=== PATIENT | female | born 1980 | race Caucasian/White ===

== ENCOUNTER 2018-11-21 16:42 | Emergency (ER) | payer MEDICAID ==
--- NOTE | 2018-11-21 19:20 | EDPHY ---
H & P Stated Complaint: cough/runny nose (4 months ) Time Seen by Provider: 11/21/18 19:14 HPI/ROS: HPI: This is a 38-year-old female who presents with Chief Complaint: cough/runny nose (4 months ) Location: Nose Quality: Congestion, pressure Duration: 4-5 days Signs and Symptoms: no fever, no nausea, no vomiting, no diarrhea, no urinary symptoms, no chest pain, no shortness of breath, no wheezing, + nonproductive cough, no sore throat, no neck stiffness, no joint pain, no swollen glands, no ear pain, no rash Timing: Acute, daily Severity: Mild Context: , currently 4 months , presents with 4-5 day history of a clear runny nose, nasal congestion, no maxillary sinus pressure and within the last 24 hr dry nonproductive cough. Nonsmoker. Patient reports that she recently moved to the area and is 4 months . She already has an appointment with [facility] for care. She denies any abdominal pain, vaginal discharge, vaginal bleeding. She is taking a vitamin daily. Patient reports that she has been trying to find a job for the last week and has an interview tomorrow. She took Claritin [id number] the last few days without improvement in her symptoms so "she knows is not her allergies." Modifying Factors: Cleared Comment: ROS: A comprehensive 10 system review of systems is otherwise negative aside from elements mentioned in the history of present illness. MEDICAL/SURGICAL/SOCIAL HISTORY: Medical history: Generally healthy. Does not take any regular medications. Surgical history: Denies Social history: Never smoked. Homeless. Denies alcohol and drug use. Family history noncontributory. CONSTITUTIONAL: Well-developed, well-nourished, well-appearing, adult white female, awake and alert, no obvious distress HEENT: Atraumatic and normocephalic, PERRL, EOMI. Bilateral suborbital darkening. Nares patent; clear rhinorrhea; mild nasal mucosal edema; bilateral reproducible maxillary sinus tenderness. Tympanic membranes clear. Oropharynx clear, no exudate and moist pink mucosa. Airway patent. No lymphadenopathy. No meningismus. Cardiovascular: Normal S1/S2, regular rate, regular rhythm, without murmur rub or gallop. PULMONARY/CHEST: Symmetrical and nontender. Clear to auscultation bilaterally. Good air movement. No accessory muscle usage. ABDOMEN: Soft, gravid, nondistended, nontender, no rebound, no guarding, no peritoneal signs, no masses or organomegaly. No CVAT. EXTREMITIES: 2/2 pulses, strength 5/5, no deformities, no clubbing, no cyanosis or edema. NEUROLOGICAL: no focal neuro deficits. GCS 15. Speech clear. SKIN: Warm and dry, no erythema. no rash. Good capillary refill. Source: Patient Exam Limitations: No limitations - Personal History LMP (Females 10-55): Current Tetanus Diphtheria and Acellular Pertussis (TDAP): No - Medical/Surgical History Hx Asthma: No Hx Chronic Respiratory Disease: No Hx Diabetes: No Hx Cardiac Disease: No Hx Renal Disease: No Hx Cirrhosis: No Hx Alcoholism: No Hx HIV/AIDS: No Hx Splenectomy or Spleen Trauma: No Other PMH: denies - Social History Smoking Status: Never smoked Constitutional: Initial Vital Signs Temperature (C) 36.7 C 11/21/18 16:44 Heart Rate 77 11/21/18 16:44 Respiratory Rate 18 11/21/18 16:44 Blood Pressure 118/72 11/21/18 16:44 O2 Sat (%) 95 11/21/18 16:44 O2 Delivery Mode Room Air Allergies/Adverse Reactions: No Known Allergies Allergy (Unverified 11/21/18 16:44) Home Medications: Medication Instructions Recorded Amoxicillin Trihydrate [Amoxil] 500 mg PO TID 7 Days cap 11/21/18 Claritin 11/21/18 Fluticasone Nasal [Flonase Nasal 1 sprays NASAL DAILY #1 mdi 11/21/18 [place] (RX)] Medical Decision Making ED Course/Re-evaluation: Vital signs reviewed and stable upon arrival. Wells criteria is low for pulmonary embolism. Will treat aggressively with Amoxicillin and [id number] Flonase or Rhinocort. Patient reports that [facility] No indication for pelvic ultrasound as no vaginal bleeding, no abdominal pain. This patient was seen under the supervision of my secondary supervising physician. I evaluated care for this patient with attending. Discussed this patient with Dr. Hawk. Differential Diagnosis: Differential diagnosis includes but is not limited to bronchitis, pulmonary embolism, pneumonia, upper respiratory infection, viral syndrome, sinusitis. Departure - Departure Disposition: Home, Routine, Self-Care Clinical Impression: Sinus disease, Second trimester , Rhinosinusitis Condition: Good Instructions: (ED), Rhinosinusitis (ED) Additional Instructions: Take antibiotics as directed. Do not skip a dose. Use [id number] Flonase/Rhinocort daily for nasal congestion. Consume a minimum of 8-10 glasses of water or electrolyte fluid replacement drinks that include Gatorade, Powerade, Pedialyte. Keep follow-up appointment at the [facility] to establish care. Referrals: [facility],. [Clinic] - As per Instructions Prescriptions: Amoxicillin Trihydrate [Amoxil] 500 mg PO TID 7 Days cap Fluticasone Nasal [Flonase Nasal [place] (RX)] 1 sprays NASAL DAILY #1 mdi
[2018-11-21 19:35] VITALS: BP 123/76
== END 2018-11-21 19:37 | disposition home or self-care (01) ==
DX: J32.9 Chronic sinusitis, unspecified (principal); Z33.1 Pregnant state, incidental

== ENCOUNTER 2018-12-07 17:29 | Emergency (ER) | payer MEDICAID, OTHER ==
--- NOTE | 2018-12-07 18:10 | EDPHY ---
H & P Time Seen by Provider: 12/07/18 17:58 HPI/ROS: CHIEF COMPLAINT: "I am grinding my teeth and I lost my mouth guard" HISTORY OF PRESENT ILLNESS: 38-year-old female currently approximately 26 weeks , history of bruxism, states that she has lost her mouth guard and is grinding her teeth in his waking up with pain at her bilateral TMJ. She is not sure what she should do next. She has not been consuming of Tylenol. She does not have money for a new mouth guard. She denies: Visual disturbance , neck pain, syncope, near syncope, abdominal pain, vaginal bleeding or discharge, loss of movement, urinary abnormality, fever, chills, peripheral edema. PRIMARY CARE PROVIDER: [facility] REVIEW OF SYSTEMS: 10 systems reviewed and negative with the exception of the elements mentioned in the history of present illness PAST MEDICAL & SURGICAL HISTORY: currently 26 weeks SOCIAL HISTORY: Denies alcohol or drug use PHYSICAL EXAM (Prior to examination, patient consented to physical exam, hands were washed and my usual and customary physical exam procedures followed) 1) GENERAL: Well-developed, well-nourished, alert and oriented. Appears to be in no acute distress. Smiling. 2) HEAD: Normocephalic, atraumatic 3) HEENT: Pupils equal, round, reactive to light bilaterally. Sclera anicteric. Symmetrical facies. Oropharynx: Poor dentition. No focal areas of discomfort palpation. Floor of mouth soft no evidence of Ata's angina. No tonsillar enlargement or exudate. No evidence of deep space infection or peritonsillar abscess. 4) NECK: Full range of motion, no meningeal signs. 5) LUNGS: Clear auscultation bilaterally, no wheezes, no rhonchi, no retractions. 6) HEART: Regular rate and rhythm, no murmur, no heave, no gallop. 7) ABDOMEN: Gravid. No guarding, no rebound, no focal tenderness, negative McBurney's, negative Aggarwal's, negative Rovsing's, negative peritoneal sign, 8) MUSCULOSKELETAL: Moving all extremities, no focal areas of tenderness, no obvious trauma. No peripheral edema or discoloration. 9) BACK: No CVA tenderness, no midline vertebral tenderness, no fluctuance, no step-off, no obvious trauma, no visual or palpable abnormality. 10) SKIN: No rash, no petechiae. 11) Psychiatric: Patient is oriented X 3, there is no agitation. 12) NEURO: Awake, alert, and oriented to person, place and time. Answers questions appropriately. There were no obvious focal neurologic abnormalities. No cerebellar dysfunction. Cranial nerves 2 through to 12 intact. Normal steady gait. Upper and lower extremities bilaterally with strength 5 / 5, reflexes 2+. DIFFERENTIAL DIAGNOSIS: In no particular order including but not limited to odontalgia, bruxism, odontogenic infection Smoking Status: Never smoked Constitutional: Initial Vital Signs Temperature (C) 36.8 C 12/07/18 17:35 Heart Rate 86 12/07/18 17:35 Respiratory Rate 17 12/07/18 17:35 Blood Pressure 142/76 H 12/07/18 17:35 O2 Sat (%) 94 12/07/18 17:35 O2 Delivery Mode Room Air Allergies/Adverse Reactions: No Known Allergies Allergy (Verified 12/07/18 17:34) Home Medications: Medication Instructions Recorded Acetaminophen [Tylenol] 650 mg PO Q6 PRN #30 capsule 12/07/18 Albuterol 12/07/18 MDM/Departure - MDM ED Course/Re-evaluation: The patient describes history of bruxism and has lost her mouth guard. She does not have the finances to afford a mouth guard. I recommend she speak with the [facility] about this as they may have referrals or financing.. We also discussed [id number] mouth guards that she may buy however she notes due to limited budget she may not be able to afford this. She is currently 26 weeks . She requested prescription for Tylenol due to finances. We discussed that at this time in the presence of a nonfocal exam , no complaints of headache, I do not think that imaging studies indicated, doubt venous sinus thrombosis. Doubt odontogenic infection. She feels comfortable being discharged. Patient feels comfortable being discharged. All questions and concerns addressed by myself. Patient given my usual and customary discharge precautions and instructions regarding their clinical impression. Care of patient under supervision of secondary supervising physician Dr Green . - Depart Disposition: Home, Routine, Self-Care Clinical Impression: Bruxism (teeth grinding) Condition: Good Instructions: (ED) Prescriptions: Acetaminophen [Tylenol] 650 mg PO Q6 PRN #30 capsule PRN Reason: Pain, Moderate Referrals: [facility],. [Clinic] - 2-3 days, call for appt.
[2018-12-07 18:26] VITALS: BP 118/73
== END 2018-12-07 18:24 | disposition home or self-care (01) ==
DX: F45.8 Other somatoform disorders (principal); R68.84 Jaw pain; Z3A.26 26 weeks gestation of pregnancy